=== PATIENT | male | born 1965 | race Caucasian/White ===

== ENCOUNTER 2023-11-24 21:22 | Emergency (ER) | payer BC, MEDICAID ==
[2023-11-24] MEDS ORDERED: Acetaminophen/oxyCODONE 325-5 MG Tab PO ONE (21:23)
[2023-11-24] MEDS ORDERED: Naloxone 0.4 MG/ML SDV IVPUSH PRN (21:57)
[2023-11-24] MEDS ORDERED: Sodium Chloride 0.9% 1,000 ML IV SCH (22:00)
[2023-11-24 22:02] LABS: BASOPHILS ABSOLUTE AUTO 0.1 x10-3/uL (0.0-0.3); BASOPHILS PERCENT AUTO 0.9 % (0.3-3.8); EOSINOPHILS ABSOLUTE AUTO 0.2 x10-3/uL (0.0-0.6); EOSINOPHILS PERCENT AUTO 2.1 % (0.1-6.8); HEMATOCRIT 46.9 % (38.3-50.1); HEMOGLOBIN 15.9 g/dL (12.9-17.7); LYMPHOCYTES ABSOLUTE AUTO 1.2 x10-3/uL (0.5-4.5); LYMPHOCYTES PERCENT AUTO 14.3 % (15.8-45.3); MEAN CORPUSCULAR HEMOGLOBIN 29.3 pg (27.0-33.3); MEAN CORPUSCULAR HGB CONC 33.8 g/dL (28.7-35.3); MEAN CORPUSCULAR VOLUME 86.8 fL (80.8-98.7); MEAN PLATELET VOLUME 8.6 fL (6.7-11.0); MONOCYTES ABSOLUTE AUTO 0.7 x10-3/uL (0.0-1.2); MONOCYTES PERCENT AUTO 8.3 % (5.5-15.2); NEUTROPHILS ABSOLUTE AUTO 6.2 x10-3/uL (1.7-6.9); NEUTROPHILS PERCENT AUTO 74.4 % (40.3-71.8); PLATELET COUNT,PLT 298 x10(3)uL (117-477); RED CELL DISTRIBUTION WIDTH 14.4 % (12.4-15.0); WHITE BLOOD CELL COUNT,WBC 8.3 x10-3/uL (3.2-10.1)
[2023-11-24] MEDS: Ondansetron 4 MG/2 ML SDV IVPUSH ONE (22:04)
[2023-11-24] MEDS: Sodium Chloride 0.9% 10 ML Syringe FLUSH PRN (22:04)
[2023-11-24] MEDS: Morphine 4 MG/ML VIAL IVPUSH ONE (22:04)
[2023-11-24 22:06] LABS: BLOOD UREA NITROGEN,BUN 9 mg/dL (7-18); BUN/CREATININE RATIO 8.2 (9-20); CALCIUM 9.2 mg/dL (8.6-10.2); CARBON DIOXIDE,CO2 29 mmol/L (21-32); CHLORIDE,CL 101 mmol/L (100-110); CREATININE 1.1 mg/dL (0.70-1.30); EST CRCL DRUG DOSING (CG) 77.42 mL/min; ESTIMATED GFR 79 mL/min (>60); GLUCOSE RANDOM 130 mg/dL (80-116); POTASSIUM,K 3.6 mmol/L (3.5-5.3); SODIUM,NA 138 mmol/L (135-145)
[2023-11-24 22:12] LABS: A/G RATIO 0.7; ALANINE AMINOTRANSFERASE,ALT 27 U/L (12-36); ALBUMIN 3.4 g/dL (3.5-5.2); ALKALINE PHOSPHATASE 147 IU/L (56-112); AMYLASE 25 U/L (25-115); ASPARTATE AMNIOTRANSFERASE,AST 19 IU/L (5-25); BILIRUBIN TOTAL 0.4 mg/dL (0.1-1.3); PROTEIN TOTAL,TP 8.5 g/dL (6.0-8.0)
[2023-11-24 22:27] LABS: LACTIC ACID 1.7 mmol/L (0.4-2.0)
[2023-11-24] MEDS: Iopamidol 755 Mg/ML 200 ML Bottle IV ONE (23:00)
[2023-11-24] MEDS: Sulfamethoxazole/Trimethoprim 800-160 MG Tab PO ONE (23:25)
[2023-11-24] MEDS: Cephalexin 500 MG Cap PO ONE (23:25)
[2023-11-25] MEDS: Iopamidol 755 Mg/ML 200 ML Bottle IV ONE (08:11)
== END 2023-11-24 23:30 | disposition home or self-care (01) ==
LOC: FB.ED 21:22
DX: R10.33 Periumbilical pain (principal); Z98.890 Other specified postprocedural states
CPT/HCPCS: 74177; 80053; 82150; 83605; 83690; 85025; 96374; 96375; 99284; A9270; J2270; J2405; J3490; Q9967